=== PATIENT | male | born 1975 | race Caucasian/White ===

== ENCOUNTER 2017-12-23 18:22 | Emergency (ER) | payer OTHER ==
[~2017-12-23] VITALS: Ht 182.9 cm; Wt 90.7 kg
[~2017-12-23 18:22] MED LIST: ACETAMINOPHEN-1 EAC1; AMOXICILLIN500 M1 PO; CIPROFLOXIN HC2.5 M1 OTIC; CLINDAMYCIN HC150 MG PO; HYDROCODON-ACE1 EAC7 PO; HYDROCODONE-AP1 EAC6 PO; IBUPROFEN 800800 M1 PO; IBUPROFEN 800800 MG PO; LIDOCAINE VISC100 M1 MM; NORCO 5-325 TA1 EAC1 PO; NORCO 5-325 TA1 EACH PO; PENICILLIN V P500 MG
[2017-12-23 18:26] VITALS: BP 166/128
[2017-12-23] MEDS ORDERED: LIDOCAINE VISC100 ML TOP (18:35)
[2017-12-23] MEDS ORDERED: NORCO 5-325 TA1 EAC1 PO (18:35)
== END 2017-12-23 18:49 | disposition home or self-care (01) ==
LOC: M.ERS 18:22
DX: K02.9 Dental caries, unspecified (principal); F17.210 Nicotine dependence, cigarettes, uncomplicated